=== PATIENT | male | born 1960 | race Caucasian/White ===

== ENCOUNTER 2017-10-10 16:31 | Emergency (ER) | payer BC, MEDICAID ==
[2017-10-10 16:45] VITALS: BP 136/92; PULSE 66; RESP 14; TEMP 98.2; O2SAT 95
[2017-10-10] MEDS ORDERED: LET GEL TOPICAL 1 EA SYR TP ONE (16:50)
--- NOTE | 2017-10-10 17:27 | EDPHY ---
H & P Time Seen by Provider: 10/10/17 16:46 HPI/ROS: This patient was washing dishes shortly prior to arrival another dishes broke and caused a laceration at the left hand palm base of the 3rd finger with moderate bleeding and mild pain. The bleeding slowed with direct pressure. He denies any other associated symptoms and has no other injuries. He denies any feeling of retained foreign body. ROS: Neuro: No numbness or tingling Musculoskeletal: No bony pain or difficulty moving the affected finger. 5 point ROS is otherwise negative. Past Medical/Surgical History: Otherwise healthy with immunizations up-to-date. Smoking Status: Never smoked Physical Exam: Physical Exam Vital signs are normal. General: No acute distress HEENT: Atraumatic. Eyes: Pupils equal and react to light. Extraocular motions are intact. Lungs: No respiratory distress. Cardiac: Brisk capillary refill is intact throughout. Pulses are 2+ and symmetric in the affected extremity. Skin: No rash or pallor. Patient has a 1 cm full-thickness laceration to the left hand palm just proximal to the base of the 3rd finger. There is mild active bleeding. Subcutaneous tissues exposed but no deeper structures are injured and no foreign bodies are appreciated on direct examination. Neuro: Alert and oriented x3 with no sensorimotor deficits. Constitutional: Initial Vital Signs Temperature (C) 36.8 C 10/10/17 16:37 Heart Rate 66 10/10/17 16:37 Respiratory Rate 14 10/10/17 16:37 Blood Pressure 136/92 H 10/10/17 16:37 O2 Sat (%) 95 10/10/17 16:37 O2 Delivery Mode Room Air Allergies/Adverse Reactions: Penicillins Allergy (Intermediate, Verified 10/10/17 16:44) Hives levofloxacin [From Levaquin] Allergy (Verified 10/10/17 16:44) Other-Enter Comments Sihscky-Ayj-Myj Reductase Inhibitor Allergy (Verified 10/10/17 16:45) Home Medications: Medication Instructions Recorded Aspirin [Aspirin 81mg (OTC)] 81 mg PO DAILY 01/22/12 Supplements 03/01/13 MDM/Departure - MDM Procedures: The wound is 1 cm full-thickness. The wound was copiously irrigated with saline. The wound was explored for foreign bodies and none were found. The wound was prepped and draped in the normal sterile fashion. The wound was anesthetized using let solution followed by a 50 50 mix of 1% plain lidocaine and 0.5% Marcaine, 27 gauge needle, 4 mL with good effect.. The edges were reapproximated using 4 0 Ethilon-4 running sutures with good hemostasis and cosmesis. The patient tolerated the procedure well. There are no complications Medications Given: Discontinued Medications Tetracaine/Epinephrine/Lidocaine (Let Gel Topical) 1 ea TP EDNOW ONE Stop: 10/10/17 16:51 Last Admin: 10/10/17 16:58 Dose: 1 ea ED Course/Re-evaluation: Discussion: Uncomplicated simple laceration without evidence of foreign body or tendon injury. No neurovascular compromise - Depart Disposition: Home, Routine, Self-Care Clinical Impression: Hand laceration Qualifiers: Encounter type: initial encounter Foreign body presence: without foreign body Laterality: left Qualified Code(s): S61.412A - Laceration without foreign body of left hand, initial encounter Condition: Good Instructions: Care For Your Stitches (ED) Additional Instructions: Diagnosis: Hand laceration Plan: Keep the wound clean and dry for the next 2 days. Then clean it daily with warm soapy water Return for suture removal in 10-12 days. Return sooner for redness, discharge or other concerns for infection. Tylenol and/or ibuprofen for pain control as needed. Referrals: Nikki Warner MD [Primary Care Provider] - As per Instructions
== END 2017-10-10 18:00 | disposition home or self-care (01) ==
LOC: CED 16:31
PROC: 0HQEXZZ Repair Left Lower Arm Skin, External Approach (ICD-10-PCS; principal; 2017-10-10)
DX: S61.412A Laceration without foreign body of left hand, initial encounter (principal); W45.8XXA Other foreign body or object entering through skin, initial encounter; Y93.G1 Activity, food preparation and clean up